=== PATIENT | male | born 1970 | race Caucasian/White ===

== ENCOUNTER → 2016-06-02 | Day surgery (SDC) | payer OTHER ==
[~2016-06-02] VITALS: Ht 180.3 cm; Wt 106.8 kg
[~2016-06-02] MED LIST: CPR500 PO; CYM60 PO; LIDOCAINE HCL 2% 2 ML VIAL (20MG/ML) ONE; MIDAZOLAM HCL 1 MG/ML 2ML VIAL ONE; ONDANSETRON INJ 2 MG/ML 2 ML VIAL ONE; PROPOFOL IV EMULSION 10 MG/ML 20 ML VIAL IV ONE; SODIUM CHLORIDE 0.9% 500ML 500 ML IV ONE; XNX25 PO
[2016-06-02 13:57] VITALS: Ht 180.3 cm; Wt 106.8 kg
[2016-06-02 14:08] VITALS: TEMP 36.8
--- NOTE | 2016-06-02 14:17 | Endo History and Physical ---
History & Physical Date of Service: Jun 02, 2016. Chief Complaint: diarrhea Referring Physician: Dr. Camacho Kline History of Present Illness Diarrhea Past Surgical History Hx Cardiac Surgery: No Hx Internal Defibrillator: No Hx Pacemaker: No Hx Abdominal Surgery: No Hx of Implantable Prosthesis: No Hx Post-Op Nausea and Vomiting: No Hx Cancer Surgery: No Hx Thoracic Surgery: No Hx Orthopedic: No Hx Urinary Tract Surgery: No Family History None Social History Smoking Status: Former Smoker Hx Substance Use: Yes ( PRESCRIBED) Hx Alcohol Use: Yes (RARELY,SOCIALLY) Allergies Uncoded Allergies: NAPROXEN SODIUM (Allergy, Intermediate, tingling of tongue, 06/02/16) Current Medications Reported Home Medications Medications Dose Route/Sig Max Daily Dose Days Date Category Xanax * (Alprazolam) 0.25 Mg Tab 0.25 Mg PO BID 04/23/07 Reported Cymbalta * (Duloxetine HCl) 60 Mg Cap 60 Mg PO DAILY 04/23/07 Reported Vital Signs Weight (Kilograms): 106.82 Height (Feet): 5 Height (Inches): 11 Date Time Temp Pulse Resp B/P Pulse Ox O2 Delivery O2 Flow Rate FiO2 06/02/16 14:08 36.8 75 18 155/71 96 Room Air Physical Exam General Appearance: no apparent distress Respiratory/Chest: Respiratory effort: no dyspnea Auscultation: breath sounds normal Cardiovascular: Apical Impulse: not displaced Heart Auscultation: RRR Abdomen: Bowel Sounds: normal Assessment and Plan Diarrhea - cscopy
--- NOTE | 2016-06-02 14:37 | GI REPORT ---
Procedure Date: 06/02/2016 2:16 PM Procedure: Colonoscopy Indications: Diarrhea Medicines: See the Anesthesia note for documentation of the administered medications Complications: No immediate complications. Estimated Blood Loss: Estimated blood loss: none. Procedure: Pre-Anesthesia Assessment: - ASA Grade Assessment: II - A patient with mild systemic disease. After I obtained informed consent, the scope was passed under direct vision. Throughout the procedure, the patient's blood pressure, pulse, and oxygen saturations were monitored continuously. The Scope was introduced through the anus and advanced to the terminal ileum. The colonoscopy was performed without difficulty. The patient tolerated the procedure well. The quality of the bowel preparation was good. Findings: The perianal and digital rectal examinations were normal. A 2 mm polyp was found in the transverse colon. The polyp was sessile. The polyp was removed with a cold biopsy forceps. Resection and retrieval were complete. The exam was otherwise normal throughout the examined colon. Biopsies were taken with a cold forceps in the entire colon for histology. The terminal ileum appeared normal. Impression: - One 2 mm polyp in the transverse colon, removed with a cold biopsy forceps. Resected and retrieved. - The examined portion of the ileum was normal. - Biopsies were taken with a cold forceps for histology in the entire colon. Recommendation: - Discharge patient to home. Surveillance cscopy based on pathology results. Baylee Sanchez M.D. Baylee Sanchez MD 06/02/2016 2:38:07 PM This report has been signed electronically. Note Initiated On: 06/02/2016 2:16 PM I attest to the content of the Intraoperative Record and orders documented therein, exceptions below
--- NOTE | 2016-06-02 14:38 | Discharge Instructions ---
Endoscopy Patient Instructions Date / Procedure(s) Performed Jun 02, 2016. Colonoscopy Allergy Information Uncoded Allergies: NAPROXEN SODIUM (Allergy, Intermediate, tingling of tongue, 06/02/16) Discharge Date / Findings Jun 02, 2016. Colon polyp, otherwise normal Provider Instructions Activity Restrictions - No exercising or heavy lifting for 24 hours. - Do not drink alcohol the day of the procedure. - Do not drive a car or operate machinery until the day after the procedure. - Do not make any important decisions or sign important papers in 24 hours after the procedure. Following Day: - Return to full activity which may include returning to work/school. Diet Start your diet with liquids and light foods (jello, soup, juice, toast). Then eat your usual diet if not nauseated. Treatment For Common After Affects For mild abdominal pain, bloating, or excessive gas: - Rest - Eat lightly - Lie on right side Follow-Up Information Follow-up with Dr. Camacho Kline as scheduled Anesthesia Information What You Should Know You have had a procedure that required some medicine to reduce anxiety and discomfort. This treatment is called moderate sedation. After receiving the treatment, you may be sleepy, but you will be able to breathe on your own. The effects of the treatment may last for several hours. Follow these instructions along with Activity/Diet recommendations noted above: * Do NOT do anything where dizziness or clumsiness would be dangerous. * Rest quietly at home today, then you can be up and about tomorrow. * Have a responsible person stay with you the rest of today. * You may have had an I.V. today. If so, you may take the dressing off later today. Recommendations Call your doctor if: * Trouble breathing * Continuous vomiting for more than 24 hours * Temperature above 101 degrees * Severe abdominal pain or bloating * Pain not relieved by pain medicine ordered * There is increased drainage or redness from any incision * A large amount of rectal bleeding greater than 2-3 tablespoons. (If you had a polyp/s removed or have hemorrhoids, a small amount of blood - from the rectum is to be expected.) * You have any unanswered questions or concerns. IN THE EVENT OF A SERIOUS EMERGENCY, GO TO THE NEAREST EMERGENCY ROOM Your discharge instructions were prepared by provider Baylee Perez. Patient Instructions Signature Page Braxton Pendleton Patient (or Guardian) Signature/Date: I have read and understand the instructions given to me by my caregivers. Caregiver/RN/Doctor Signature/Date: The above-named patient and/or guardian has received patient instructions on this date. + Original Patient Signature Page (only) stays with chart. Please make copy for patient.
[2016-06-02 15:10] VITALS: BP 128/71; PULSE 71; O2SAT 96
--- NOTE | 2016-06-02 15:11 | Anesthesiology Progress Note ---
Anesthesia Post Op Note Date & Time Jun 02, 2016 at 15:11 Vital Signs Pain Intensity: 0 Vital Signs Past 12 Hours Date Time Temp Pulse Resp B/P Pulse Ox O2 Delivery O2 Flow Rate FiO2 06/02/16 14:55 81 20 116/58 97 Room Air 06/02/16 14:40 87 18 115/59 97 Room Air 06/02/16 14:08 36.8 75 18 155/71 96 Room Air Notes Mental Status: alert / awake / arousable, participated in evaluation Pt Amnestic to Procedure: Yes Nausea / Vomiting: adequately controlled Pain: adequately controlled Airway Patency, RR, SpO2: stable & adequate BP & HR: stable & adequate Hydration State: stable & adequate Anesthetic Complications: no major complications apparent
== END | disposition home or self-care (01) ==
LOC: C.GI 13:43
PROVIDERS: ATTEND Internal Medicine Gastroenterology
DX: R19.7 Diarrhea, unspecified (principal); D12.3 Benign neoplasm of transverse colon; Z87.891 Personal history of nicotine dependence

== ENCOUNTER 2021-03-03 05:05 | Inpatient (IN) ==
[2021-03-03] MEDS ORDERED: ONDANSETRON INJ 2 MG/ML 2 ML VIAL IV STA (05:31)
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
[2021-03-03 06:10] LABS: Basophils # (auto) 0.01 K/uL (0-0.2); Basophils % (auto) 0.2 %; Eosinophils # (auto) 0.15 K/uL (0-0.5); Eosinophils % (auto) 2.4 %; Hematocrit (blood only) 45.7 % (42-52); Hemoglobin 15.8 g/dL (14.0-18.0); Immature Granulocytes # (auto) 0.02 K/uL (0.00-0.02); Immature Granulocytes % (auto) 0.3 %; Lymphocytes # (auto) 1.21 K/uL (1.2-3.4); Mean Corpuscular Hemoglobin 30.4 pg (25-34); Mean Corpuscular Hgb Conc 34.6 g/dL (32-36); Mean Corpuscular Volume 88.1 fL (80-100); Mean Platelet Volume 9.5 fL (7.4-10.4); Monocytes % (auto) 9.4 %; Neutrophils # (auto) 4.37 K/uL (1.4-6.5); Neutrophils % (auto) 68.7 %; Platelet Count 236 K/uL (130-400); RDW Standard Deviation 41.9 fL (36.4-46.3); Red Blood Count 5.19 M/uL (4.7-6.1); White Blood Count 6.36 K/uL (4.8-10.8)
[2021-03-03 06:27] LABS: Alanine Aminotransferase 22 U/L (12-78); Albumin Level 3.2 gm/dl (3.4-5.0); Aspartate Aminotransferase 10 U/L (15-37); BUN Creatinine Ratio 7.3 (10-20); Blood Urea Nitrogen 8 mg/dl (7-18); Calcium 8.7 mg/dl (8.5-10.1); Carbon Dioxide 24 mmol/L (21-32); Chloride 110 mmol/L (98-107); Glucose 101 mg/dl (70-99); Lipase 131 U/L (73-393); Potassium 4.6 mmol/L (3.5-5.1); Sodium 140 mmol/L (136-145)
[2021-03-03 06:32] LABS: Albumin Globulin Ratio 1.1 (0.9-2); Alkaline Phosphatase 51 U/L (45-117); Bilirubin,Total 1.3 mg/dl (0.2-1); Globulin 2.9 gm/dl (2.5-4.0); Total Protein 6.1 gm/dl (6.4-8.2); Troponin I < 0.015 ng/ml (0-0.045)
[2021-03-03] MEDS ORDERED: LORazepam 1 MG/2 ML VIAL IV STA (08:05)
[2021-03-03] MEDS ORDERED: LORazepam 1 MG/2 ML VIAL IV PRN (08:12)
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
[2021-03-03 08:19] LABS: D Dimer < 190 ug/L FEU (0-500)
--- NOTE | 2021-03-03 08:40 | XRay Report ---
XR chest 1V portable CLINICAL HISTORY: Atypical chest pain TECHNIQUE: Single frontal radiograph of the chest was obtained. Comparison: Comparison is made to chest one view 10/27/2020 FINDINGS: No lines and tubes are seen. The cardiomediastinal silhouette is normal. The lungs are clear. No evid ence of pleural effusion or pneumothorax. IMPRESSION: No acute chest disease. ACT 112: Negative or not required by law. Electronically signed by: Connor Chávez M.D. 03/03/2021 8:39 AM
--- NOTE | 2021-03-03 08:55 | CT Scan Report ---
CT head/brain wo con CLINICAL HISTORY: seizure Technique: Contiguous axial CT images of the head were acquired from the base of the skull to the ramila dora without intravenous contrast administration. Images were viewed in brain, subdural and bone [facility]. Automated dose lowering techniques and/or adjustment according to patient size were utilized for this exam. Comparison: None available at the time of this dictation. Findings: The ventricles, basal cisterns, and cerebral sulci are normal. There is no acute intracranial hemorrh age or evidence of acute territorial infarction. Neither mass effect, shift of the midline structures , nor abnormal extra-axial fluid collections are shown. Partial visualization of calcific density in the right maxillary sinus. Mucus retention cysts are see n in the bilateral maxillary sinuses. The orbits appear normal. There are no acute fractures of the calvaria or scalp swelling. Impression: No acute intracranial hemorrhage, no evidence of acute territorial infarction or other acute intracra nial disease process. ACT 112: Negative or not required by law. Electronically signed by: Connor Chávez M.D. 03/03/2021 8:53 AM
[2021-03-03] MEDS ORDERED: GADOBUTROL 65ML VIAL IV ONE (09:17)
[2021-03-03] MEDS ORDERED: ONDANSETRON INJ 2 MG/ML 2 ML VIAL IV PRN (09:48)
[2021-03-03] MEDS ORDERED: ACETAMINOPHEN 325 MG TAB PO PRN (09:48)
[2021-03-03] MEDS ORDERED: POLYETHYLENE (MIRALAX) 17 GM PACK PO PRN (09:48)
--- NOTE | 2021-03-03 10:09 | Magnetic Resonance Report ---
MR brain seizure wo/w con CLINICAL HISTORY: new seizure TECHNIQUE: Multiplanar and multisequence MR images of the brain were obtained prior to and following administration of gadolinium contrast. Comparison: None available at the time of this dictation. FINDINGS: No abnormal restricted diffusion is identified. The white matter is unremarkable. There is no evidenc e of acute intraparenchymal hemorrhage. No extra axial fluid collections are seen. There are no shawna s, mass effect, or midline shift. No abnormal enhancement is seen. The ventricular system is normal i n appearance. The corpus callosum, pituitary gland, and cerebellar tonsils appear grossly unremarkabl e.High-resolution images of the temporal lobes do not demonstrate any signal abnormality. Flow voids of the major intracranial arterial vessels are identified. The imaged portions of the para nasal sinuses, mastoid air cells, and orbits are unremarkable. IMPRESSION: No acute abnormality. In particular, no edema in the temporal lobes bilaterally in this postictal pat ient. ACT 112: Negative or not required by law. Electronically signed by: Connor Chávez M.D. 03/03/2021 10:08 AM
[2021-03-03] MEDS ORDERED: ALPRAZolam 0.25 MG TABLET PO PRN (11:58)
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
[2021-03-03] MEDS: hydrOXYzine HCl 25 MG TAB PO SCH (15:19)
[2021-03-03] MEDS: DULoxetine HCL 60 MG CAP PO SCH (15:19)
--- NOTE | 2021-03-03 15:24 | Electroencephalogram ---
EEG Procedure Note Date of Service March 03, 2021 Start / End Times Start Time: 11:13 End Time: 11:33 Referring Physician Juana Muse PA-C History A 50-year-old male with new onset seizure. EEG performed progression of epileptiform activity. Home Medication List Medication Instructions Recorded Confirmed Type alprazolam 0.25 mg tablet (Xanax) 0.25 mg PO DAILY PRN 10/27/20 03/03/21 History colestipol 1 gram tablet 1 g PO BID 10/27/20 03/03/21 History duloxetine 60 mg capsule,delayed 60 mg PO DAILY 10/27/20 03/03/21 History release hydroxyzine HCl 25 mg tablet 25 mg PO DAILY 03/03/21 03/03/21 History Inpatient Medication List Discontinued Medications Gadobutrol (Gadobutrol 65ml Vial) 11 ml IV ONCE ONE Stop: 03/03/21 09:18 Last Admin: 03/03/21 09:18 Dose: 11 ml Documented by: [id number] Lorazepam (Ativan) 1 mg in 2 mls @ 2 mls/min IV NOW STA Stop: 03/03/21 08:06 Last Admin: 03/03/21 08:16 Dose: 2 mls/min Documented by: [id number] Ondansetron HCl (Ondansetron Inj 2 Mg/Ml 2 Ml Vial) 4 mg IV NOW STA Stop: 03/03/21 05:32 Last Admin: 03/03/21 05:40 Dose: 4 mg Documented by: [id number] Description This is a 21 electrode EEG with a single channel dedicated to limited EKG. The electrodes were placed in accordance with the International 10-20 system. Report: At the onset of the EEG the patient is awake. The background is symm etric and well organized. The posterior dominant rhythm is 9 Hz. There is a normal anterior to posterior gradient with low amplitude beta activity in the frontal head region. Photic stimulation does not induce any abnormalities. No stage II sleep transients are seen. No epileptiform discharges are recorded. Interpretation This is a normal awake and drowsy routine EEG. There is no evidence of focal slowing or epileptiform activity.
[2021-03-03] MEDS: COLESTIPOL HCL 1 GM TAB PO SCH ×2 (21:08→22:29)
--- NOTE | 2021-03-03 23:14 | Electrocardiogram Report ---
Test Reason : Blood Pressure : / mmHG Vent. Rate : 087 BPM Atrial Rate : 087 BPM P-R Int : 146 ms QRS Dur : 118 ms QT Int : 374 ms P-R-T Axes : 003 019 016 degrees QTc Int : 450 ms Normal sinus rhythm Incomplete right bundle branch block Borderline ECG When compared with ECG of 27-OCT-2020 20:37, No significant change was found Confirmed by Eder Gann ([id number]) on 03/03/2021 11:13:53 PM Referred By: REFERRED SELF Confirmed By:Eder Gann
[2021-03-04 06:07] LABS: Hematocrit (blood only) 46.7 % (42-52); Mean Corpuscular Hemoglobin 30.7 pg (25-34); Mean Corpuscular Hgb Conc 34.3 g/dL (32-36); Mean Corpuscular Volume 89.5 fL (80-100); Mean Platelet Volume 9.4 fL (7.4-10.4); Platelet Count 256 K/uL (130-400); RDW Coefficient of Variation 13.2 % (11.5-14.5); RDW Standard Deviation 43.6 fL (36.4-46.3); Red Blood Count 5.22 M/uL (4.7-6.1); White Blood Count 8.39 K/uL (4.8-10.8)
[2021-03-04 06:33] LABS: Calcium 8.9 mg/dl (8.5-10.1); Creatinine Clr Calc Pharmacy 104.5 ml/min; Est GFR (African American) 90.9 ml/min; Est GFR (Non-African American) 78.4 ml/min; Potassium 4.1 mmol/L (3.5-5.1)
[2021-03-04] MEDS: hydrOXYzine HCl 25 MG TAB PO SCH (08:27)
[2021-03-04] MEDS: DULoxetine HCL 60 MG CAP PO SCH (08:27)
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
[2021-03-04] MEDS: COLESTIPOL HCL 1 GM TAB PO SCH (08:49)
--- NOTE | 2021-03-04 13:45 | Electrocardiogram Report ---
Test Reason : Blood Pressure : / mmHG Vent. Rate : 083 BPM Atrial Rate : 083 BPM P-R Int : 146 ms QRS Dur : 116 ms QT Int : 378 ms P-R-T Axes : 049 030 027 degrees QTc Int : 444 ms Poor data quality, interpretation may be adversely affected Normal sinus rhythm RSR' or QR pattern in V1 suggests right ventricular conduction delay Borderline ECG When compared with ECG of 03-MAR-2021 05:37, No significant change was found Confirmed by Ino Hilton ([id number]) on 03/04/2021 1:44:33 PM Referred By: REFERRED SELF Confirmed By:Ino Hilton
== END 2021-03-04 09:15 | disposition home or self-care (01) | DRG 101 ==
LOC: ED 05:05 → EDINP 07:48 → 2S 09:45